=== PATIENT | female | born 1970 | race Caucasian/White ===

== ENCOUNTER 2018-04-09 16:05 | Emergency (ER) | payer MEDICAID, OTHER ==
--- NOTE | 2018-04-09 16:17 | EDM.PDOC ---
ED HPI GENERAL MEDICAL PROBLEM - General Chief Complaint: General Stated Complaint: feeling ill from medication Time Seen by Provider: 04/09/18 16:16 Source of Information: Reports: Patient, RN, RN Notes Reviewed History Limitations: Reports: No Limitations - History of Present Illness INITIAL COMMENTS - FREE TEXT/NARRATIVE: Patient presents to the ED at [facility] with concerns of medication making her feel sick. Patient states she was diagnosed with a UTI last week in the clinic. She was started on Cipro, but was later told her urine culture showed resistance, so she was switched to Macrobid. Patient states when she was on Macrobid last August, she started having flu-like symptoms. She states she started having the same symptoms last night. She denies any CP or SOB. No breathing problems. Patient denies any rash or hives. No N/V/D. - Related Data Allergies Allergy/AdvReac Type Severity Reaction Status Date / Time amoxicillin [From Augmentin] Allergy Cannot Verified 04/09/18 16:22 Remember clavulanic acid Allergy Cannot Verified 04/09/18 16:22 [From Augmentin] Remember nitrofurantoin Allergy Body Aches Verified 04/09/18 16:22 [From Macrobid] Sulfa (Sulfonamide Allergy Cannot Verified 04/09/18 16:22 Antibiotics) Remember Home Meds: Home Meds Doxylamine Succinate [Unisom Sleep Aid] 25 mg PO BEDTIME PRN 04/09/18 [History] Gabapentin [Neurontin] 300 mg PO TID 04/09/18 [History] Tamoxifen [Nolvadex] 20 mg PO DAILY 04/09/18 [History] ED ROS GENERAL - Review of Systems Review Of Systems: See Below Constitutional: Reports: Other (flu like symptoms, body aches, fever). Denies: Fever, Chills, Weakness Respiratory: Denies: Shortness of Breath, Cough Cardiovascular: Denies: Chest Pain, Palpitations GI/Abdominal: Denies: Abdominal Pain, Nausea, Vomiting Skin: Reports: No Symptoms Neurological: Reports: Headache. Denies: Dizziness, Numbness, Paresthesia, Tingling ED EXAM, GENERAL - Physical Exam Exam: See Below Exam Limited By: No Limitations General Appearance: Alert, No Apparent Distress Neck: Supple Respiratory/Chest: No Respiratory Distress, Lungs Clear, Normal Breath Sounds Cardiovascular: Normal Peripheral Pulses, Regular Rate, Rhythm Peripheral Pulses: 2+: Radial (L), Radial (R) GI/Abdominal: Normal Bowel Sounds, Soft, Non-Tender Neurological: Alert, Oriented Skin Exam: Warm, Dry, Intact, Normal Color, No Rash Course - Vital Signs Last Recorded V/S: Last Vital Signs Temp 37.2 C 04/09/18 16:10 Pulse 74 04/09/18 16:10 Resp 18 04/09/18 16:10 BP 131/43 L 04/09/18 16:10 Pulse Ox 95 04/09/18 16:10 Departure - Departure Time of Disposition: 16:32 Disposition: Home, Self-Care 01 Condition: Good Clinical Impression: Macrolide antibiotic causing adverse effect in therapeutic use Qualifiers: Encounter type: initial encounter Qualified Code(s): T36.3X5A - Adverse effect of macrolides, initial encounter - Discharge Information *PRESCRIPTION DRUG MONITORING PROGRAM REVIEWED*: Not Applicable *COPY OF PRESCRIPTION DRUG MONITORING REPORT IN PATIENT INDIRA: Not Applicable Instructions: Doxycycline tablets or capsules Referrals: Alanna Hamilton DO [Physician] - Forms: ED Department Discharge Additional Instructions: 1. Stay well hydrated and rest 2. Stop Macrobid 3. Start Doxycycline twice a day for 7 days 4. May try Tylenol/Advil to help with flu-like symptoms 5. Call your PCP as symptoms warrant - Problem List Review Problem List Initiated/Reviewed/Updated: Yes - Assessment/Plan Assessment:: Flu-like symptoms from Macrobid Plan: Will stop Macrobid and start Doxycycline. Patient seems sensitive to most abx. Continue with lots of water. See PCP as needed
[2018-04-09] MEDS: Take Home: Doxycycline 100 MG Tab, 4 Tab Pack PO ONE (16:35)
== END 2018-04-09 16:42 | disposition home or self-care (01) ==
LOC: VM.ED 16:05
DX: R09.89 Other specified symptoms and signs involving the circulatory and respiratory systems (principal); T36.3X5A Adverse effect of macrolides, initial encounter; Z88.1 Allergy status to other antibiotic agents; Z88.2 Allergy status to sulfonamides; Z79.899 Other long term (current) drug therapy
CPT/HCPCS: 99283; A9270-GY